=== PATIENT | male | born 1970 | race Caucasian/White ===

== ENCOUNTER 2021-12-25 21:51 | Emergency (ER) | payer SELFPAY ==
[~2021-12-25] VITALS: Ht 177.8 cm; Wt 100.0 kg
[2021-12-26] MEDS ORDERED: IBUP-2029 MT (01:50)
[2021-12-26 01:54] VITALS: BP 144/92
[2021-12-26] MEDS ORDERED: KETOROLAC 60MG/2ML VIAL IM ONE (02:00)
== END 2021-12-26 01:53 | disposition home or self-care (01) ==
LOC: ER 21:51
DX: M54.50 Low back pain, unspecified (principal); Z90.49 Acquired absence of other specified parts of digestive tract; X50.0XXA Overexertion from strenuous movement or load, initial encounter; Y93.89 Activity, other specified; Y92.89 Other specified places as the place of occurrence of the external cause; Y99.8 Other external cause status
CPT/HCPCS: 96372; 99283; J1885